=== PATIENT | female | born 1980 | race Caucasian/White ===

== ENCOUNTER 2019-03-05 08:14 | Emergency (ER) | payer MEDICAID, SELFPAY ==
--- NOTE | 2019-03-05 08:17 | ED_ITS ---
Entered by Nikki Baltazar, acting as scribe for HPI - Asthma General: Chief Complaint: Asthma Stated Complaint: Can not breath Time Seen by Provider: 03/05/19 08:17 Source: patient and family Mode of arrival: ambulatory Limitations: no limitations History of Present Illness: HPI Narrative: 38 yo female presents with shortness of breath and anxiety. pt states this started 2-3 months ago but worsened today. pt has had a cough. pt states she took a breathing treatment just captain waiter but she cant catch her breath. pt has a hx of asthma. pt denies any other symptoms at this time. MD complaint: asthma attack and shortness of breath Onset (ago): month(s) (3 months ago but worsened today) Severity: moderate Associated symptoms: Reports non-productive cough; Deny chest pain or fever(s) Related Data: Current Asthma Therapy: other (breathing treatment) Review of Systems Const: Denies: fever or chills Eyes: Denies: change in vision ENMT: Denies: throat pain or mouth pain Card: Denies: chest pain Resp: Reports: non-productive cough and wheezing; Denies: shortness of breath GI: Denies: abdominal pain, vomiting or diarrhea : Denies: difficulty urinating Musc: Denies: back pain or joint pain Skin/Breast: Denies: rash Neuro: Denies: headache Psych: Denies: depression Endo: Denies: excessive urination Fadi/Lymph: Denies: easy bruising All/Imm: Denies: hives PFSH ED PFSH: Statuses (acute, chronic, etc) shown below reflect problem list status as previously entered and may not be historically accurate Medical History Asthma (Acute) Social History Smoking and tobacco status: never smoked Physical Exam Const: COMMON NORMALS: no apparent distress and healthy appearing HENMT: COMMON NORMALS: normocephalic and external nose normal HEAD & SCALP: normocephalic NOSE: external nose normal and no nasal discharge (nasal dischage) Eye: COMMON NORMALS: PERRL PUPIL: Yes PERRL Neck/C-Spine: COMMON NORMALS: full ROM and no lymphadenopathy Chest: COMMONS NORMALS: inspection of chest normal Resp: COMMON NORMALS: normal respiratory effort EFFORT & INSPECTION: No respiratory distress and Yes audible wheezes Cardio: COMMON NORMALS: regular rate and regular rhythm RATE: regular rate RHYTHM: regular rhythm GI: COMMON NORMALS: soft to palpation PALPATION: Yes soft Extremity: COMMON NORMALS: normal to inspection, full ROM and normal capillary refill Psych: COMMON NORMALS: mental status grossly normal and cooperative Skin: COMMON NORMALS: no rashes or lesions noted GENERAL SKIN EXAM: no rashes or lesions noted Course Vital Signs: Vital signs: Vital Signs Temperature 99.2 F 03/05/19 08:19 Pulse Rate 110 H 03/05/19 09:37 Respiratory Rate 18 03/05/19 09:37 Blood Pressure 181/104 03/05/19 09:37 Pulse Oximetry 97 03/05/19 09:37 MDM - Asthma MDM Narrative: Medical decision making narrative: Patient presents with cough and congestion likely bronchitis. Will prescribe patient antibiotic along with steroid. She is in no distress here and d-dimer is negative with no signs of pulmonary embolism. Patient is to follow-up with primary care doctor in 3 to 5 days and return if worsening. Lab Data: Labs: Lab Results 03/05/19 03/05/19 03/05/19 Range/Units 08:29 08:29 08:29 WBC 12.3 H (4.0-10.0) 10^3/ uL RBC 4.87 (4.1-5.3) 10^6/u L Hgb 12.1 (11.5-15.3) g/dL Hct 38.2 (37.0-47.0) % MCV 78.4 L (81-99) fL MCH 24.8 L (28.0-34.0) pg MCHC 31.7 (30.0-36.0) g/dL RDW 15.0 (12.1-15.1) % Plt Count 270 (130-400) 10^3/c mm MPV 9.8 (7.4-10.4) fL Neut % (Auto) 68.2 % Lymph % (Auto) 20.1 % [place] % (Auto) 7.4 % Eos % (Auto) 3.5 % Baso % (Auto) 0.3 % Neut # (Auto) 8.4 H (1.8-7.7) 10^3/u L Lymph # (Auto) 2.5 (0.8-4.8) 10^3/u L [place]ne # (Auto) 0.9 (0.2-0.9) 10^3/u L Eos # (Auto) 0.4 (0.0-0.8) 10^3/u L Baso # (Auto) 0.0 (0.0-0.1) 10^3/u L Nucleated RBC % (a uto) 0 % Nucleated RBCs # 0.0 /100WBC D-Dimer (0-0.59) ug/mIFE U Sodium 135 L (136-145) mmol/L Potassium 4.0 (3.5-5.1) mmol/L Chloride 99 (98-107) mmol/L Carbon Dioxide 23 (22-29) mmol/L Anion Gap 17.0 (5-19) BUN 9 (6-20) mg/dL Creatinine 0.5 (0.5-0.9) mg/dL GFR Calculation 138.1 H (90-130) mL/min Glucose 224 H (74-109) mg/dL Calcium 9.4 (8.6-10.0) mg/Dl Total Bilirubin 0.4 (0.15-1.2) mg/dL AST 13 (0-32) U/L ALT 22 (0-33) U/L Alkaline Phosphata se 84 (35-105) IU/L Troponin T Baselin e 6 (0-10) ng/mL Total Protein 6.7 (6.6-8.7) g/dL Albumin 4.6 (3.5-5.2) g/dL Globulin 2.1 (1.3-4.6) g/dL 03/05/19 Range/Units 08:29 WBC (4.0-10.0) 10^3/ uL RBC (4.1-5.3) 10^6/u L Hgb (11.5-15.3) g/dL Hct (37.0-47.0) % MCV (81-99) fL MCH (28.0-34.0) pg MCHC (30.0-36.0) g/dL RDW (12.1-15.1) % Plt Count (130-400) 10^3/c mm MPV (7.4-10.4) fL Neut % (Auto) % Lymph % (Auto) % [place]ne % (Auto) % Eos % (Auto) % Baso % (Auto) % Neut # (Auto) (1.8-7.7) 10^3/u L Lymph # (Auto) (0.8-4.8) 10^3/u L [place]ne # (Auto) (0.2-0.9) 10^3/u L Eos # (Auto) (0.0-0.8) 10^3/u L Baso # (Auto) (0.0-0.1) 10^3/u L Nucleated RBC % (a uto) % Nucleated RBCs # /100WBC D-Dimer 0.45 (0-0.59) ug/mIFE U Sodium (136-145) mmol/L Potassium (3.5-5.1) mmol/L Chloride (98-107) mmol/L Carbon Dioxide (22-29) mmol/L Anion Gap (5-19) BUN (6-20) mg/dL Creatinine (0.5-0.9) mg/dL GFR Calculation (90-130) mL/min Glucose (74-109) mg/dL Calcium (8.6-10.0) mg/Dl Total Bilirubin (0.15-1.2) mg/dL AST (0-32) U/L ALT (0-33) U/L Alkaline Phosphata se (35-105) IU/L Troponin T Baselin e (0-10) ng/mL Total Protein (6.6-8.7) g/dL Albumin (3.5-5.2) g/dL Globulin (1.3-4.6) g/dL Imaging Data^: CXR: Attestation: I personally reviewed and interpreted this imaging study as follows: My impression: no acute abnormality Discharge Plan Discharge Patient Disposition: Home, Self-Care Clinical Impression: Acute asthmatic bronchitis Hypertension Qualifiers: Hypertension type: essential hypertension Qualified Code(s): I10 - Essential (primary) hypertension Condition: Stable Prescriptions: New Keflex 500 mg capsule 500 mg PO Q6H 7 Days Qty: 28 RF: 0 prednisone 50 mg tablet 50 mg PO DAILY Qty: 5 RF: 0 hydrochlorothiazide 25 mg tablet 25 mg PO DAILY Qty: 30 RF: 0 Discharge Orders: Discharge Order (Routine); Ordered 03/05/19 Ordered By: Naeem Salinas Discharge Diet: Advance as tolerated Discharge Activity: Resume usual activity Patient Instructions: Acute Bronchitis (ED) Activity Restrictions/Additional Instructions: follow up with pcp in 3-5 days Discharge Date/Time: 03/05/19 09:40 Coding Level of Care Code ED Metaphysics Teacher for Chg Fwd Exam Problem Focused The documentation recorded by the Giovanny thomson Bridget Annette, accurately reflects the service I personally performed and the decisions made by Brad altman Korby, MD Mar 05, 2019 08:14
[2019-03-05 08:19] VITALS: BP 212/104; PULSE 116; RESP 20; TEMP 37.3; O2SAT 99; BMI 56.5
--- NOTE | 2019-03-05 08:19 | XRR_ITS ---
PROCEDURE INFORMATION: Exam: XR Chest, 1 View Exam date and time: 03/05/2019 8:30 AM Age: 38 years old Clinical indication: Shortness of breath; Additional info: Cough TECHNIQUE: Imaging protocol: XR of the chest Views: 1 view. COMPARISON: No relevant prior studies available. FINDINGS: Lungs: Lung volumes are mildly hypoinflated. No focal consolidation. Pleural space: No pleural effusion. No pneumothorax. Heart/Mediastinum: No cardiomegaly. Bones/joints: Unremarkable for technique. XR/XR chest 1V portable [id number] IMPRESSION: 1. Mild hypoinflation. Otherwise, no acute cardiopulmonary process identified.
--- NOTE | 2019-03-05 08:21 | PC.NURSE ---
Patient to room.
[2019-03-05] MEDS: LORazepam 2 mg/mL INJ 1 mL 1 MG IVP (08:34)
[2019-03-05 08:37] LABS: Basophils % 0.3 %; Eosinophils # 0.4 10^3/uL (0.0-0.8); Eosinophils % 3.5 %; Hematocrit 38.2 % (37.0-47.0); Hemoglobin 12.1 g/dL (11.5-15.3); Lymphocytes # 2.5 10^3/uL (0.8-4.8); Lymphocytes % 20.1 %; Mean Corpuscular HGB Conc 31.7 g/dL (30.0-36.0); Mean Corpuscular Hemoglobin 24.8 pg (28.0-34.0); Mean Corpuscular Volume 78.4 fL (81-99); Mean Platelet Volume 9.8 fL (7.4-10.4); Monocytes # 0.9 10^3/uL (0.2-0.9); Monocytes % 7.4 %; Neutrophils # 8.4 10^3/uL (1.8-7.7); Neutrophils % 68.2 %; Nucleated Red Blood Cells % 0 %; Platelet Count 270 10^3/cmm (130-400); Red Blood Count 4.87 10^6/uL (4.1-5.3); White Blood Count 12.3 10^3/uL (4.0-10.0)
--- NOTE | 2019-03-05 08:47 | PC.NURSE ---
Skin: [place],Warm,Dry
[2019-03-05 08:53] LABS: D Dimer 0.45 ug/mIFEU (0-0.59)
[2019-03-05] MEDS: ipratropium-albuterol 3 mL Neb INHALATION (08:53)
[2019-03-05 08:54] VITALS: PULSE 118; RESP 20; O2SAT 95
[2019-03-05] MEDS: acetaminophen 325 mg Tablet 650 MG PO (09:00)
[2019-03-05 09:01] VITALS: PULSE 121; RESP 20; O2SAT 96
[2019-03-05 09:01] LABS: Alanine Aminotransferase 22 U/L (0-33); Albumin Level 4.6 g/dL (3.5-5.2); Alkaline Phosphatase 84 IU/L (35-105); Aspartate Amino Transferase 13 U/L (0-32); Blood Urea Nitrogen 9 mg/dL (6-20); Calcium 9.4 mg/Dl (8.6-10.0); Carbon Dioxide 23 mmol/L (22-29); Chloride 99 mmol/L (98-107); Globulin 2.1 g/dL (1.3-4.6); Glomerular Filtration Rate 138.1 mL/min (90-130); Glucose 224 mg/dL (74-109); Sodium 135 mmol/L (136-145); Total Bilirubin 0.4 mg/dL (0.15-1.2); Total Protein 6.7 g/dL (6.6-8.7)
[2019-03-05 09:03] LABS: Troponin(5th) Baseline 6 ng/mL (0-10)
[2019-03-05 09:37] VITALS: BP 181/104; PULSE 110; RESP 18; O2SAT 97
== END 2019-03-05 09:40 | disposition home or self-care (01) ==
PROVIDERS: Emergency Provider Emergency Medicine
DX: J45.909 Unspecified asthma, uncomplicated (principal); I10 Essential (primary) hypertension
CPT/HCPCS: 71045; 80053; 84484; 85025; 85378; 96374; 99281; J2060; J2930

== ENCOUNTER 2019-03-12 16:55 | Observation (INO) | payer MEDICAID, SELFPAY ==
[2019-03-12] VITALS (10 sets, daily range): BP systolic 117–186; BP diastolic 54–138; PULSE 106–136; RESP 18–30; TEMP 36.6–36.9; O2SAT 95–99; BMI 56.5
--- NOTE | 2019-03-12 16:58 | ED_ITS ---
Entered by Li Diego, acting as scribe for HPI - Asthma General: Chief Complaint: Asthma Stated Complaint: Asthma Attack Time Seen by Provider: 03/12/19 16:57 Source: patient Mode of arrival: ambulatory Limitations: no limitations History of Present Illness: HPI Narrative: 38 yo Female presents to ED with complaint of asthma attack. Pt states that she has been throwing up all day. Pt states that she was seen last week for the same thing. Pt states that she has been using her inhaler for her asthma. Pt's family member states that the patient has also been complaining of pain in her side. Pt states she has had tarry stools. complaint: asthma attack , shortness of breath and wheezing Onset (ago): hour(s) (all day) Severity: severe Associated symptoms: Reports non-productive cough and other (left flank pain) Treatments Prior to Arrival: inhaled bronchodilator Review of Systems General: Reports: 10 or more systems reviewed and unremarkable except in HPI and below Resp: Reports: shortness of breath, non-productive cough and wheezing GI: Reports: abdominal pain, nausea, vomiting and black tarry stool : Reports: flank pain (left) PFSH ED PFSH: Statuses (acute, chronic, etc) shown below reflect problem list status as previously entered and may not be historically accurate Social History Smoking and tobacco status: never smoked Female Reproductive History: Date of last menstrual period: 03/12/19 Physical Exam Const: COMMON NORMALS: oriented x3, no limitations, healthy appearing, alert and well nourished GENERAL APPEARANCE: in distress and anxious NUTRITIONAL APPEARANCE: obese HENMT: COMMON NORMALS: normocephalic, head/scalp atraumatic, hearing grossly normal bilaterally, external ears normal, EAC's normal, TM's normal bilaterally, external nose normal, nasal mucous membranes and turbinates normal, moist oral mucous membranes, oropharynx normal, dentition normal and gingiva normal HEAD & SCALP: normocephalic and atraumatic NOSE: external nose normal and nasal mucous membranes and turbinates normal EXTERNAL EAR: Yes external ears normal EXTERNAL AUDITORY CANAL: EAC's normal TYMPANIC MEMBRANE: TM's normal bilaterally Eye: COMMON NORMALS: PERRL, EOMs intact bilaterally, conjunctivae normal, no scleral icterus, no papilledema, normal visual mendoza by confrontation and fundi normal bilaterally CONJUNCTIVA: Yes conjunctivae normal PUPIL: Yes PERRL DIRECT OPHTHALMOSCOPY: Yes no papilledema and Yes fundi normal bilaterally Neck/C-Spine: COMMON NORMALS: full ROM, supple, no meningeal signs, no JVD and no carotid bruits Chest: COMMONS NORMALS: inspection of chest normal and palpation of chest normal Resp: COMMON NORMALS: no retractions EFFORT & INSPECTION: No able to speak in complete sentences, Yes tachypneic, Yes respiratory distress, Yes uses accessory muscles and Yes tripod positioning AUSCULTATION: wheezes expiratory wheezes and throughout and diminished lung sounds Cardio: COMMON NORMALS: no JVD, regular rhythm, S1 normal heart sound, S2 normal heart sound, no gallops, no clicks, no murmurs, no rub and peripheral pulses 2+ throughout RATE: tachycardic RHYTHM: regular rhythm HEART SOUNDS: S1 normal and S2 normal PERIPHERAL PULSES: pulses 2+ throughout GI: COMMON NORMALS: normal to inspection, nondistended, normoactive bowel sounds, soft to palpation, non-tender, no hepatosplenomegaly, no masses and no bruits PALPATION: Yes soft and Yes no hepatosplenomegaly : COMMON NORMALS: Yes no CVA tenderness BLADDER/KIDNEY EXAM: Yes no CVA tenderness Back/Pelvis: COMMON NORMALS: no CVA tenderness Extremity: COMMON NORMALS: normal to inspection, full ROM, normal capillary refill, no joint enlargement, no clubbing, cyanosis or edema, no calf tenderness and no pedal edema Neuro: COMMON NORMALS: oriented x3 SENSORIUM/ORIENTATION: Yes alert MENINGEAL SIGNS: Yes no meningeal signs Skin: COMMON NORMALS: no rashes or lesions noted, no wounds, skin turgor normal, no jaundice, no petechiae and no mottling GENERAL SKIN EXAM: no rashes or lesions noted and turgor normal Course Reevaluation(s): Reevaluation #1: Patient seen. She feels better now, she is not coughing as frequently, not throwing up anymore. She is able to speak in full sentences now. She is no longer in respiratory distress. On examination she has much improved air movement, only a few expiratory wheezes heard. We will give her another breathing treatments and wait on the rest of her labs and imaging before a final disposition will be made. She voiced understanding and is in agreement with the plan. Time: 18:19 Consultations: Consultation #1: Dr. Haynes, hospitalist. She kindly accepted the patient to her service. Time: 20:00 Vital Signs: Vital signs: Vital Signs Temperature 98.2 F 03/12/19 19:56 Pulse Rate 111 H 03/12/19 19:56 Respiratory Rate 24 H 03/12/19 19:56 Blood Pressure 183/103 03/12/19 19:56 Pulse Oximetry 97 03/12/19 19:56 MDM - Asthma MDM Narrative: Medical decision making narrative: 38-year-old female patient who presented to the emergency department in respiratory distress. She has a history of poorly controlled asthma and has been in this emergency department 5 days ago for the same thing. She was given a steroid burst and albuterol breathing treatments at home which apparently are not working. Evaluation in the emergency department showed a chest x-ray clear for pneumonia, labs unremarkable. She is admitted under observation status for pulmonary toilet and further management. Differential Diagnosis: Differential diagnosis asthma: Likely acute exacerbation, status asthmaticus and acute asthmatic bronchitis Medical Records: Attestation: I reviewed the patient's medical records. Lab Data: Attestation: I reviewed the patient's lab results. Labs: Lab Results 03/12/19 03/12/19 03/12/19 Range/Units 17:02 17:03 17:03 WBC 13.9 H (4.0-10.0) 10^3/ uL RBC 5.23 (4.1-5.3) 10^6/u L Hgb 12.8 (11.5-15.3) g/dL Hct 40.7 (37.0-47.0) % MCV 77.8 L (81-99) fL MCH 24.5 L (28.0-34.0) pg MCHC 31.4 (30.0-36.0) g/dL RDW 14.7 (12.1-15.1) % Plt Count 288 (130-400) 10^3/c mm MPV 9.9 (7.4-10.4) fL Neut % (Auto) 68.3 % Lymph % (Auto) 20.4 % [place] % (Auto) 5.6 % Eos % (Auto) 5.1 % Baso % (Auto) 0.2 % Neut # (Auto) 9.5 H (1.8-7.7) 10^3/u L Lymph # (Auto) 2.8 (0.8-4.8) 10^3/u L [place] # (Auto) 0.8 (0.2-0.9) 10^3/u L Eos # (Auto) 0.7 (0.0-0.8) 10^3/u L Baso # (Auto) 0.0 (0.0-0.1) 10^3/u L Nucleated RBC % (a uto) 0 % Nucleated RBCs # 0.0 /100WBC Specimen Type Arterial Sample Site Radial, left ABG pH 7.46 H (7.35-7.45) ABG pCO2 31.6 L (35-45) mmHg ABG pO2 86.6 (80.0-100.0) mmH g ABG HCO3 22.6 (22-26) mmol/L ABG O2 Saturation 97.8 ABG Base Excess -0.4 (-2.0-2.0) mmol/ L Simeon Test Pos A-a O2 Gradient 22.9 H (5-10) mmHg Hematocrit 41.3 (37-47) % Hgb O2 Saturation 96.8 (95-100) % Carboxyhemoglobin 0.7 (0.4-20.1) %THgb Methemoglobin 0.4 (0.4-1.5) % Total Hemoglobin 13.5 (12-16) g/dL Sodium 137.0 133 L (131-143) mmol/L Potassium 3.7 3.8 (3.5-5.0) mmol/L Glucose 177.0 H 205 H (70-115) mg/dL Ionized Calcium 1.2 (1.1-1.4) mmol/L FiO2 21.0 % Accountant Property ID [id number] Chloride 97 L (98-107) mmol/L Carbon Dioxide 23 (22-29) mmol/L Anion Gap 16.8 (5-19) BUN 9 (6-20) mg/dL Creatinine 0.5 (0.5-0.9) mg/dL GFR Calculation 138.1 H (90-130) mL/min Calcium 9.6 (8.6-10.0) mg/Dl Total Bilirubin 0.3 (0.15-1.2) mg/dL AST 26 (0-32) U/L ALT 41 H (0-33) U/L Alkaline Phosphata se 90 (35-105) IU/L C-React Prot High Sens 4.240 H (0.0-0.3) mg/dL Total Protein 6.8 (6.6-8.7) g/dL Albumin 4.1 (3.5-5.2) g/dL Globulin 2.7 (1.3-4.6) g/dL Lipase 29 (13-60) U/L Imaging Data^: CXR: Radiologist's impression: [place] [address] XRay Report Signed Patient: Samantha Qiu #: [id number] : 1980Acct#:[id number] Age/Sex: 38 / FADM Date: 03/12/19 Loc: ERRoom/Bed: Attending Dr: Ordering Provider/Ordering MD: Elba Sy MD, [facility] [place] Date of Service: 03/12/19 Procedure(s): XR chest 1V portable [id number] Accession Number(s): [id number] Report Number: [id number] PROCEDURE INFORMATION: Exam: XR Chest, 1 View Exam date and time: 03/12/2019 6:34 PM Age: 38 years old Clinical indication: Shortness of breath; Additional info: Asthma TECHNIQUE: Imaging protocol: XR of the chest Views: 1 view. COMPARISON: CR (CHEST, ) 03/05/2019 8:29 AM FINDINGS: Lungs: Unremarkable. No consolidation. Pleural space: Unremarkable. No pleural effusion. No pneumothorax. Heart/Mediastinum: Unremarkable. No cardiomegaly. Bones/joints: Unremarkable. XR/XR chest 1V portable [id number] IMPRESSION: No acute findings. Dictated By:Julia Dyer MD Signed By:Julia Dyer MDSigned Date/Time:03/12/191915 DD/ 13 CT Abd/Pel: Radiologist's impression: [place] [address] CT Scan Report Signed Patient: Samantha Qiualysia #: [id number] : 1980Acct#:[id number] Age/Sex: 38 / FADM Date: 03/12/19 Loc: ERRoom/Bed: Attending Dr: Ordering Provider/Ordering MD: Elba Sy MD, [facility] [place] Date of Service: 03/12/19 Procedure(s): CT abdomen pelvis w con* [id number] Accession Number(s): [id number] Report Number: [id number] PROCEDURE INFORMATION: Exam: CT Abdomen And Pelvis With Contrast Exam date and time: 03/12/2019 6:36 PM Age: 38 years old Clinical indication: Abdominal pain; Localized; Left upper quadrant (luq); Additional info: Luq pain TECHNIQUE: Imaging protocol: Computed tomography of the abdomen and pelvis with intravenous contrast. Total DLP: 2182.43 mGy-cm Radiation optimization: All CT scans at this facility use at least one of these dose optimization techniques: automated exposure control; mA and/or kV adjustment per patient size (includes targeted exams where dose is matched to clinical indication); or iterative reconstruction. Contrast material: OMNIPAQUE 300; Contrast volume: 95 ml; Contrast route: IV; COMPARISON: US pelvic with transvaginal 03/24/2013 5:31 PM FINDINGS: Mediastinum: There is fluid in the distal esophagus consistent with reflux. Liver: Hepatomegaly with fatty infiltration of the liver. Gallbladder and bile ducts: Normal. No calcified stones. No ductal dilation. Pancreas: Normal. No ductal dilation. Spleen: Spleen is mildly enlarged measuring 13.6 cm. Adrenals: Normal. No mass. Kidneys and ureters: 10 mm well-circumscribed cystic lesion in the left kidney has benign features. Follow-up is not necessary. Stomach and bowel: Unremarkable. No obstruction. No mucosal thickening. Appendix: A normal appendix is identified. Intraperitoneal space: Unremarkable. No free air. No significant fluid collection. Vasculature: Unremarkable. No abdominal aortic aneurysm. Lymph nodes: Unremarkable. No enlarged lymph nodes. Bladder: Unremarkable as visualized. Reproductive: Essure microinserts are present in the uterine cornua extending into the proximal fallopian tubes. Bones/joints: Unremarkable. No acute fracture. Soft tissues: There is edema in the subcutaneous soft tissues of the ventral abdomen. CT/CT abdomen pelvis w con* [id number] IMPRESSION: 1. Hepatomegaly with fatty infiltration of the liver. 2. Mild splenomegaly. 3. There is fluid in the distal esophagus consistent with reflux. COMMENT: Consistent with the [employer]'s Incidental Findings Committee Report (J Am Candido Radiol 2010): Unless the patient's specific circumstances suggest otherwise, any liver lesion 0.5 cm or less, any cystic kidney lesion less than 1.0 cm, and/or any adrenal lesion 1.0 cm or less not otherwise characterized in this report as possessing suspicious or indeterminate imaging features is/are highly likely to be benign and do not require follow-up imaging or biopsy. Radiation Dose CTDIVOL = (mGy): DLP = 2182.43 (mGy-cm) Dictated By:Julia Dyer MD Signed By:Julia Dyerigned Date/Time:03/12/191922 DD/ 20 Discharge Plan Discharge Patient Disposition: Placed in Observation Clinical Impression: Asthma with acute exacerbation Condition: Stable Prescriptions: No Action prednisone 50 mg tablet 50 mg PO DAILY Qty: 5 RF: 0 hydrochlorothiazide 25 mg tablet 25 mg PO DAILY Qty: 30 RF: 0 albuterol sulfate 2.5 mg /3 mL (0.083 %) Solution For Nebulization 2.5 mg inhalation Q4H PRN (Reason: Shortness Of Breath) RF: 0 famotidine 20 mg Tablet 20 mg PO BID RF: 0 benzonatate 100 mg Capsule 100 mg PO Q8H RF: 0 Keflex 500 mg Capsule 500 mg PO Q6H RF: 0 Probiotic 2 cap PO DAILY RF: 0 biotin 1 cap PO DAILY RF: 0 Coding Level of Care Code ED Risk Manager for Chg Fwd Exam Problem Focused The documentation recorded by the Brandie thomson Carmen, accurately reflects the service I personally performed and the decisions made by , Elba Sy MD, [facility] Mar 12, 2019 16:55
[2019-03-12 17:10] LABS: Basophils % 0.2 %; Eosinophils # 0.7 10^3/uL (0.0-0.8); Eosinophils % 5.1 %; Hematocrit 40.7 % (37.0-47.0); Hemoglobin 12.8 g/dL (11.5-15.3); Lymphocytes # 2.8 10^3/uL (0.8-4.8); Lymphocytes % 20.4 %; Mean Corpuscular HGB Conc 31.4 g/dL (30.0-36.0); Mean Corpuscular Hemoglobin 24.5 pg (28.0-34.0); Mean Corpuscular Volume 77.8 fL (81-99); Mean Platelet Volume 9.9 fL (7.4-10.4); Monocytes # 0.8 10^3/uL (0.2-0.9); Monocytes % 5.6 %; Neutrophils # 9.5 10^3/uL (1.8-7.7); Neutrophils % 68.3 %; Nucleated Red Blood Cells % 0 %; Platelet Count 288 10^3/cmm (130-400); Red Blood Count 5.23 10^6/uL (4.1-5.3); Red Cell Distribution Width 14.7 % (12.1-15.1); White Blood Count 13.9 10^3/uL (4.0-10.0)
[2019-03-12 17:13] LABS: ABG PCO2 31.6 mmHg (35-45); ABG PH Result 7.46 (7.35-7.45); Alveolar-Arterial Oxygen Gradi 22.9 mmHg (5-10); Arterial Blood Gas Hematocrit 41.3 % (37-47); Base Excess ABG -0.4 mmol/L (-2.0-2.0); Blood Gas Allen Test Pos; Blood Gas Operator Identificat amh; Blood Gas Sample Site Radial, left; Blood Gas Sample Type Arterial; Carboxyhemoglobin 0.7 %THgb (0.4-20.1); HCO3 ABG 22.6 mmol/L (22-26); HGB O2 Sat 96.8 % (95-100); Ionized Calcium Level - ABG 1.2 mmol/L (1.1-1.4); Methemoglobin 0.4 % (0.4-1.5); Oxygen Saturation ABG 97.8; PO2 ABG 86.6 mmHg (80.0-100.0); Potassium Level - ABG 3.7 mmol/L (3.5-5.0); Total Hemoglobin 13.5 g/dL (12-16)
[2019-03-12] MEDS: ipratropium-albuterol 3 mL Neb INHALATION (17:15)
[2019-03-12 17:33] LABS: Alanine Aminotransferase 41 U/L (0-33); Albumin Level 4.1 g/dL (3.5-5.2); Alkaline Phosphatase 90 IU/L (35-105); Anion Gap 16.8 (5-19); Aspartate Amino Transferase 26 U/L (0-32); Blood Urea Nitrogen 9 mg/dL (6-20); Calcium 9.6 mg/Dl (8.6-10.0); Carbon Dioxide 23 mmol/L (22-29); Chloride 97 mmol/L (98-107); Globulin 2.7 g/dL (1.3-4.6); Glomerular Filtration Rate 138.1 mL/min (90-130); Glucose 205 mg/dL (74-109); Lipase 29 U/L (13-60); Potassium 3.8 mmol/L (3.5-5.1); Sodium 133 mmol/L (136-145); Total Bilirubin 0.3 mg/dL (0.15-1.2); Total Protein 6.8 g/dL (6.6-8.7)
--- NOTE | 2019-03-12 18:12 | XRR_ITS ---
PROCEDURE INFORMATION: Exam: XR Chest, 1 View Exam date and time: 03/12/2019 6:34 PM Age: 38 years old Clinical indication: Shortness of breath; Additional info: Asthma TECHNIQUE: Imaging protocol: XR of the chest Views: 1 view. COMPARISON: CR (CHEST, ) 03/05/2019 8:29 AM FINDINGS: Lungs: Unremarkable. No consolidation. Pleural space: Unremarkable. No pleural effusion. No pneumothorax. Heart/Mediastinum: Unremarkable. No cardiomegaly. Bones/joints: Unremarkable. XR/XR chest 1V portable [id number] IMPRESSION: No acute findings.
--- NOTE | 2019-03-12 18:18 | CTR_ITS ---
PROCEDURE INFORMATION: Exam: CT Abdomen And Pelvis With Contrast Exam date and time: 03/12/2019 6:36 PM Age: 38 years old Clinical indication: Abdominal pain; Localized; Left upper quadrant (luq); Additional info: Luq pain TECHNIQUE: Imaging protocol: Computed tomography of the abdomen and pelvis with intravenous contrast. Total DLP: 2182.43 mGy-cm Radiation optimization: All CT scans at this facility use at least one of these dose optimization techniques: automated exposure control; mA and/or kV adjustment per patient size (includes targeted exams where dose is matched to clinical indication); or iterative reconstruction. Contrast material: OMNIPAQUE 300; Contrast volume: 95 ml; Contrast route: IV; COMPARISON: US pelvic with transvaginal 03/24/2013 5:31 PM FINDINGS: Mediastinum: There is fluid in the distal esophagus consistent with reflux. Liver: Hepatomegaly with fatty infiltration of the liver. Gallbladder and bile ducts: Normal. No calcified stones. No ductal dilation. Pancreas: Normal. No ductal dilation. Spleen: Spleen is mildly enlarged measuring 13.6 cm. Adrenals: Normal. No mass. Kidneys and ureters: 10 mm well-circumscribed cystic lesion in the left kidney has benign features. Follow-up is not necessary. Stomach and bowel: Unremarkable. No obstruction. No mucosal thickening. Appendix: A normal appendix is identified. Intraperitoneal space: Unremarkable. No free air. No significant fluid collection. Vasculature: Unremarkable. No abdominal aortic aneurysm. Lymph nodes: Unremarkable. No enlarged lymph nodes. Bladder: Unremarkable as visualized. Reproductive: Essure microinserts are present in the uterine cornua extending into the proximal fallopian tubes. Bones/joints: Unremarkable. No acute fracture. Soft tissues: There is edema in the subcutaneous soft tissues of the ventral abdomen. CT/CT abdomen pelvis w con* [id number] IMPRESSION: 1. Hepatomegaly with fatty infiltration of the liver. 2. Mild splenomegaly. 3. There is fluid in the distal esophagus consistent with reflux. COMMENT: Consistent with the [employer]'s Incidental Findings Committee Report (J Am Candido Radiol 2010): Unless the patient's specific circumstances suggest otherwise, any liver lesion 0.5 cm or less, any cystic kidney lesion less than 1.0 cm, and/or any adrenal lesion 1.0 cm or less not otherwise characterized in this report as possessing suspicious or indeterminate imaging features is/are highly likely to be benign and do not require follow-up imaging or biopsy. Radiation Dose CTDIVOL = (mGy): DLP = 2182.43 (mGy-cm)
[2019-03-12] MEDS: iohexol 300 mg/mL 100 mL Btl IV (18:38)
--- NOTE | 2019-03-12 20:20 | PC.NURSE ---
Report called to Tonya RN on [facility], all questions answered.
--- NOTE | 2019-03-12 20:24 | PM.HP ---
Providers/Chief Complaint Admitting Physician: Victorino Haynes DO Primary Care Provider: Victorino Haynes DO Chief Complaint: ASTHMA EXACERBATION History of Present Illness Samantha Qiu is a 38 year old female with history of intermittent asthma, IBS presents with shortness of breath. Patient states that for the past 1 month her symptoms have gotten intermittently worse and her albuterol use is at its increased. Patient came to the ER 5 days ago where she was discharged with oral prednisone taper for asthma exacerbation. Patient now presents back with worsening shortness of breath and severe wheezing. Also admits to nausea vomiting. Denies any fever, chills, abdominal pain or other complaints Review of Systems General: Reports: 10 or more systems reviewed and unremarkable except in HPI and below Resp: Reports: shortness of breath and wheezing GI: Reports: nausea Medications/Allergies Home Medications Medication Instructions Recorded Confirmed Last Taken Type Probiotic 2 cap PO DAILY 03/12/19 03/12/19 03/12/19 History albuterol sulfate 2.5 mg INHALATION Q4H PRN 03/12/19 03/12/19 03/12/19 History benzonatate 100 mg PO Q8H 03/12/19 03/12/19 03/11/19 History biotin 1 cap PO DAILY 03/12/19 03/12/19 03/12/19 History cephalexin [Keflex] 500 mg PO Q6H 03/12/19 03/12/19 03/12/19 History famotidine 20 mg PO BID 03/12/19 03/12/19 03/12/19 History Allergies Allergy/AdvReac Type Severity Reaction Status Date / Time No Known Allergies Allergy Verified 03/05/19 09:08 PFSH Acute PFSH: Statuses (acute, chronic, etc) shown below reflect problem list status as previously entered and may not be historically accurate Medical History Acute asthmatic bronchitis (Acute) Asthma (Acute) Hypertension (Acute) Social History Smoking and tobacco status: never smoked Female Reporductive History: Date of last menstrual period: 03/12/19 Vitals/I&O/Wt Last Vital Signs Temp 98.2 F 03/12/19 19:56 Pulse 111 H 03/12/19 19:56 Resp 24 H 03/12/19 19:56 BP 183/103 03/12/19 19:56 Pulse Ox 97 03/12/19 19:56 Weight last 48 hrs Weight 154.221 kg Physical Exam Const: COMMON NORMALS: no apparent distress, oriented x3 and well nourished HENMT: COMMON NORMALS: normocephalic HEAD & SCALP: normocephalic Eye: COMMON NORMALS: no scleral icterus Neck/C-Spine: COMMON NORMALS: full ROM and supple Resp: AUSCULTATION: wheezes expiratory wheezes, inspiratory wheezes and throughout Cardio: COMMON NORMALS: regular rate, regular rhythm, S1 normal heart sound and S2 normal heart sound RATE: regular rate RHYTHM: regular rhythm HEART SOUNDS: S1 normal and S2 normal GI: COMMON NORMALS: normal to inspection, nondistended, normoactive bowel sounds and non-tender Extremity: COMMON NORMALS: full ROM and no clubbing, cyanosis or edema Neuro: COMMON NORMALS: oriented x3 Psych: COMMON NORMALS: mental status grossly normal Skin: COMMON NORMALS: no rashes or lesions noted GENERAL SKIN EXAM: no rashes or lesions noted Data : 03/12/19 17:03 03/12/19 17:03 A&P Assessment and plan (1) Asthma with acute exacerbation: #Shortness of breath 2/2 acute on chronic asthma exacerbation X-ray clear. Denies any fever or chills and vitals stable ?IV Solu-Medrol ?Nebs ?Influenza swab ?Nausea likely due to gastritis. CT abdomen done in the ER negative for acute process #Hypertension ?Continue with home meds #Continue with rest of chronic home medications #DVT prophylaxis?enoxaparin subcu Status: Acute Qualifiers: Asthma persistence: persistent Asthma severity: severe Qualified Code(s): J45.51 - Severe persistent asthma with (acute) exacerbation Code(s): J45.901 - Unspecified asthma with (acute) exacerbation (2) Hypertension: Status: Chronic Qualifiers: Hypertension type: essential hypertension Qualified Code(s): I10 - Essential (primary) hypertension Code(s): I10 - Essential (primary) hypertension Attestations Medical Necessity Statement*: Patient requires less than 2 midnights of observation admission for asthma exacerbation Coding Level of Care Code 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
[2019-03-12] MEDS: sodium chloride 0.9% 1,000 ML 100 ML IV (21:21)
[2019-03-12] MEDS: benzonatate 100 mg Capsule PO (21:54)
[2019-03-12 22:33] LABS: Influenza A by IFA Negative (Negative); Influenza B by IFA Negative (Negative)
[2019-03-12] MEDS: acetaminophen 325 mg Tablet 650 MG PO (23:14)
[2019-03-13] VITALS (15 sets, daily range): BP systolic 137–164; BP diastolic 82–97; PULSE 103–113; RESP 17–22; TEMP 36.4–36.6; O2SAT 94–98
[2019-03-13] MEDS: ipratropium-albuterol 3 mL Neb INHALATION ×4 (00:02→11:00)
[2019-03-13] MEDS: hydroCHLOROthiazide 25 mg Tablet PO ×2 (03:55→08:56)
--- NOTE | 2019-03-13 04:01 | PC.NURSE ---
pt rings finally removed. reports feeling very swollen, refused to have fluids hooked back up at this time. States 'making the swelling worse
[2019-03-13] MEDS: benzonatate 100 mg Capsule PO (05:08)
[2019-03-13 06:23] LABS: Basophils % 0.1 %; Eosinophils % 0.1 %; Hematocrit 39.2 % (37.0-47.0); Hemoglobin 12.4 g/dL (11.5-15.3); Lymphocytes # 0.7 10^3/uL (0.8-4.8); Lymphocytes % 4.7 %; Mean Corpuscular HGB Conc 31.6 g/dL (30.0-36.0); Mean Corpuscular Hemoglobin 24.7 pg (28.0-34.0); Mean Corpuscular Volume 78.1 fL (81-99); Mean Platelet Volume 10.5 fL (7.4-10.4); Monocytes # 0.1 10^3/uL (0.2-0.9); Monocytes % 0.8 %; Neutrophils # 13.4 10^3/uL (1.8-7.7); Neutrophils % 93.7 %; Nucleated Red Blood Cells % 0 %; Platelet Count 244 10^3/cmm (130-400); Red Blood Count 5.02 10^6/uL (4.1-5.3); Red Cell Distribution Width 15.3 % (12.1-15.1); White Blood Count 14.4 10^3/uL (4.0-10.0)
[2019-03-13 06:40] LABS: Anion Gap 20.1 (5-19); Blood Urea Nitrogen 11 mg/dL (6-20); Calcium 9.3 mg/Dl (8.6-10.0); Carbon Dioxide 19 mmol/L (22-29); Chloride 100 mmol/L (98-107); Glomerular Filtration Rate 138.1 mL/min (90-130); Glucose 393 mg/dL (74-109); Potassium 4.1 mmol/L (3.5-5.1); Sodium 135 mmol/L (136-145)
[2019-03-13] MEDS: famotidine 20 mg Tablet PO (08:56)
[2019-03-13] MEDS: acetaminophen 325 mg Tablet 650 MG PO (11:07)
--- NOTE | 2019-03-13 12:30 | P.DS_ITS ---
Discharge Providers Date of Admission: 03/12/19 20:16 Date of Discharge: 03/13/19 Attending Provider at Admission: Victorino Haynes DO Attending Provider at Discharge: Bruce Borden Primary Care Provider: Ayanna Cruz MD Diagnoses at Discharge Discharge Diagnosis (1) Asthma with acute exacerbation: Status: Acute Qualifiers: Asthma persistence: persistent Asthma severity: severe Qualified Code(s): J45.51 - Severe persistent asthma with (acute) exacerbation (2) Hypertension: Status: Inactive Qualifiers: Hypertension type: essential hypertension Qualified Code(s): I10 - Essential (primary) hypertension Reason for Visit Reason for Visit: Reason For Visit: ASTHMA EXACERBATION Hospital Course Hospital Course: 38-year-old lady with history of asthma, hypertensionwas placed in observation after presenting with shortness of breath with some worsening over the past 1 month, needing to use her albuterol inhaler more often. She reports that she also has a nebulizer at home, also with albuterol. She was noted wheezing on presentation. Underwent treatment with IV steroid, breathing treatments. She has not required oxygen. She is free of wheezes today. She is feeling better. Feels strong enough to return home. Given multiple return visits to the emergency department we will set her up with appointment with pulmonology to which she is agreeable. At this time given she only has albuterol at home we will start her on Advair. She reports her last pulmonary function test was about 16 years ago. Due to this we will refer her for repeat PFT after improvement in symptoms. Of note her blood pressure was very high on presentation. In part perhaps due to her symptoms. She was continued on home HCTZ. Her blood pressure has improved significantly overnight. She should continue monitoring at home. Continue low-sodium diet, and her medication. Please reassess in office. Physical Exam Const: COMMON NORMALS: no apparent distress and oriented x3 NUTRITIONAL APPEARANCE: obese HENMT: COMMON NORMALS: oropharynx normal Neck/C-Spine: COMMON NORMALS: no JVD Resp: COMMON NORMALS: normal respiratory effort and clear to auscultation bilaterally AUSCULTATION: clear to auscultation bilaterally Cardio: COMMON NORMALS: no JVD, regular rhythm, S1 normal heart sound, S2 normal heart sound and no murmurs RHYTHM: regular rhythm HEART SOUNDS: S1 normal and S2 normal GI: COMMON NORMALS: normal to inspection, nondistended, normoactive bowel sounds, soft to palpation and non-tender PALPATION: Yes soft Extremity: COMMON NORMALS: no joint enlargement and no pedal edema Neuro: COMMON NORMALS: oriented x3 and moves all extremities Skin: COMMON NORMALS: no rashes or lesions noted GENERAL SKIN EXAM: no rashes or lesions noted Discharge Data Data Completed and Pending: Completed Studies During Hospitalization Category Date Time Status CT abdomen pelvis w con* [id number] Urge nt Cat Scan 03/12/19 18:18 Completed XR chest 1V jennifer ble [id number] Stat Exams 03/12/19 18:12 Completed Pending at discharge Category Date Time Status Arterial Blood Ga s Full Routine Lab 03/12/19 17:02 Results Labs from last 24 hours 03/13/19 03/13/19 03/12/19 05:35 05:35 21:40 WBC 14.4 H RBC 5.02 Hgb 12.4 Hct 39.2 MCV 78.1 L MCH 24.7 L MCHC 31.6 RDW 15.3 H Plt Count 244 MPV 10.5 H Neut % (Auto) 93.7 Lymph % (Auto) 4.7 [place] % (Auto) 0.8 Eos % (Auto) 0.1 Baso % (Auto) 0.1 Neut # (Auto) 13.4 H Lymph # (Auto) 0.7 L [place] # (Auto) 0.1 L Eos # (Auto) 0.0 Baso # (Auto) 0.0 Nucleated RBC % (a uto) 0 Nucleated RBCs # 0.0 Specimen Type Sample Site ABG pH ABG pCO2 ABG pO2 ABG HCO3 ABG O2 Saturation ABG Base Excess Simeon Test A-a O2 Gradient Hematocrit Hgb O2 Saturation Carboxyhemoglobin Methemoglobin Total Hemoglobin Sodium 135 L Potassium 4.1 Glucose 393 H Ionized Calcium FiO2 Director Of Automation ID Chloride 100 Carbon Dioxide 19 L Anion Gap 20.1 H BUN 11 Creatinine 0.5 GFR Calculation 138.1 H Calcium 9.3 Total Bilirubin AST ALT Alkaline Phosphata se C-React Prot High Sens Total Protein Albumin Globulin Lipase Influenza Type A A g Negative POC Influenza B Ag Negative 03/12/19 03/12/19 03/12/19 17:03 17:03 17:02 WBC 13.9 H RBC 5.23 Hgb 12.8 Hct 40.7 MCV 77.8 L MCH 24.5 L MCHC 31.4 RDW 14.7 Plt Count 288 MPV 9.9 Neut % (Auto) 68.3 Lymph % (Auto) 20.4 [place] % (Auto) 5.6 Eos % (Auto) 5.1 Baso % (Auto) 0.2 Neut # (Auto) 9.5 H Lymph # (Auto) 2.8 [place] # (Auto) 0.8 Eos # (Auto) 0.7 Baso # (Auto) 0.0 Nucleated RBC % (a uto) 0 Nucleated RBCs # 0.0 Specimen Type Arterial Sample Site Radial, left ABG pH 7.46 H ABG pCO2 31.6 L ABG pO2 86.6 ABG HCO3 22.6 ABG O2 Saturation 97.8 ABG Base Excess -0.4 Simeon Test Pos A-a O2 Gradient 22.9 H Hematocrit 41.3 Hgb O2 Saturation 96.8 Carboxyhemoglobin 0.7 Methemoglobin 0.4 Total Hemoglobin 13.5 Sodium 133 L 137.0 Potassium 3.8 3.7 Glucose 205 H 177.0 H Ionized Calcium 1.2 FiO2 21.0 Director Of Automation ID amh Chloride 97 L Carbon Dioxide 23 Anion Gap 16.8 BUN 9 Creatinine 0.5 GFR Calculation 138.1 H Calcium 9.6 Total Bilirubin 0.3 AST 26 ALT 41 H Alkaline Phosphata se 90 C-React Prot High Sens 4.240 H Total Protein 6.8 Albumin 4.1 Globulin 2.7 Lipase 29 Influenza Type A A g POC Influenza B Ag Vitals: Last Vital Signs Temp 97.8 F 03/13/19 11:43 Pulse 106 H 03/13/19 11:43 Resp 22 H 03/13/19 11:43 BP 143/82 03/13/19 11:43 Pulse Ox 96 03/13/19 11:43 Discharge Plan Discharge Patient Disposition: Home, Self-Care Condition: Stable Prescriptions: New fluticasone propion-salmeterol 45-21 mcg/actuation HFA aerosol inhaler 2 inh INHALATION BID Qty: 8 RF: 0 prednisone 20 mg tablet 20 mg PO DAILY 4 Days Qty: 4 RF: 0 Continued hydrochlorothiazide 25 mg tablet 25 mg PO DAILY Qty: 30 RF: 0 albuterol sulfate 2.5 mg /3 mL (0.083 %) Solution For Nebulization 2.5 mg inhalation Q4H PRN (Reason: Shortness Of Breath) RF: 0 famotidine 20 mg Tablet 20 mg PO BID RF: 0 benzonatate 100 mg Capsule 100 mg PO Q8H RF: 0 Keflex 500 mg Capsule 500 mg PO Q6H RF: 0 Probiotic 2 cap PO DAILY RF: 0 biotin 1 cap PO DAILY RF: 0 Discontinued prednisone 50 mg tablet 50 mg PO DAILY Qty: 5 RF: 0 Discharge Orders: Discharge Order (Routine); Ordered 03/13/19 Ordered By: Bruce Borden Other Ambulatory Orders: Miscellaneous Procedure (Order) Timeframe: 4 Weeks Location: None Selected Ordered By: Bruce Borden Referrals: Ayanna Cruz MD [Primary Care Provider] - 4-7 days Aileen Olmedo MD [Physician] - 2 weeks (Asthma) Discharge Diet: Low Salt Discharge Activity: Increase activity as tolerated Activity Restrictions/Additional Instructions: Please monitor your blood pressures 3 times daily. Record values to bring to your appointment. If your blood pressure is persistently elevated, above 190 systolic, above 110 diastolic please seek medical attention without delay. 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
--- NOTE | 2019-03-13 14:39 | PC.CHAP ---
Pastoral Care Encounter/Spiritual Assessment Type of Contact [] Declined exploration manager visit [] Patient/Family/Request visit [] Outpatient visit [] Follow-up visit [] Physician referral [] Code/Alert [x] Routine visit [] Staff referral [] Actively dying [] Patient sleeping [x] Family support [] [] Out of room [] Palliative care [] [] Receiving care in room [] Pre-surgical visit [] Trauma [] Long length of stay [] ICU visit [] Other: Relational/Emotional Strength [x] Patient feels connected with others/family/visitors/staff [] Distress [] Loneliness/isolation [] Abandonment Spirituality of Patient [x] Person of Hue [x] Attends Evangelical of their Hue [x] Believes in Prayer [x] Reads Bible or Caodaism materials [] There are Spiritual issues to be addressed Engineer Third Assistant Interventions [x] Prayer [x] Active listening [x] Non-anxious presence [x] Spiritual/emotional support [] Crisis/trauma care [] Spiritual counseling [] Bereavement support [] Provided bereavement packet [] Provided Bible/devotional materials [] Provided toy/stuffed animal, coloring book to patient or family member [x] Completed spiritual assessment [] Provided Communion [] Anointing/[place]agoner [] Salvation [] Other: Impact on Illness or Injury [] Angry [] Fearful [] Anxious [] Often cries [] Exhaustion [x] Unable to work [] Unable to attend scientology [] Unable to walk/stand [] Unable to read [] Unable to drive [] Unable to eat/drink [] Unable to sleep [] Unable to be with family [x] Other: Patient in [facility] and is very active with other residents and activities. Summary Family members present. Patient expects to leave hospital tomorrow. Patient was very pleasant and talkative. Patient was a delight to be around. Time spent with patient 15 minutes
== END 2019-03-13 15:00 | disposition home or self-care (01) ==
LOC: ER 20:10 → MEDSURG 20:17
PROVIDERS: Admitting Provider Internal Medicine; Emergency Provider Family Medicine; PCP Family Medicine; Visit Provider Internal Medicine
DX: J45.51 Severe persistent asthma with (acute) exacerbation (principal); I10 Essential (primary) hypertension
CPT/HCPCS: 12345; 36415; 36600; 71045; 74177; 80048; 80051; 80053; 82810; 83690; 83986; 85025; 86141; 87804; 94640; 94664; 96360; 96361; 96374; 96375; 99221; 99281; 99285; G0378; J2920; J2930; J7030; J7611; Q9967

== ENCOUNTER → 2021-07-11 10:46 | Outpatient (BNVA) | payer BC, MEDICAID, SELFPAY | PROVIDERS: PCP Family Medicine; Visit Provider Internal Medicine Critical Care Medicine | DX: J45.40 Moderate persistent asthma, uncomplicated (principal); J30.9 Allergic rhinitis, unspecified; I10 Essential (primary) hypertension | CPT/HCPCS: 99213 ==

== ENCOUNTER → 2022-04-08 10:19 | Outpatient (BNVA) | payer BC, MEDICAID, SELFPAY | PROVIDERS: PCP Family Medicine; Visit Provider Registered Nurse Neonatal Intensive Care | DX: J02.9 Acute pharyngitis, unspecified (principal); H66.003 Acute suppurative otitis media without spontaneous rupture of ear drum, bilateral | CPT/HCPCS: 87880 ==

== ENCOUNTER 2023-05-24 18:24 | Emergency (ER) | payer BC, MEDICAID, SELFPAY ==
[2023-05-24] VITALS (9 sets, daily range): BP systolic 98–142; BP diastolic 67–97; PULSE 73–89; RESP 20–22; TEMP 36.6; O2SAT 97–100; BMI 46.7
--- NOTE | 2023-05-24 18:46 | USR_ITS ---
PROCEDURE INFORMATION: Exam: US Abdomen, Limited; Right Upper Quadrant Exam date and time: 05/24/2023 7:01 PM Age: 42 years old Clinical indication: Abdominal pain; Patient HX: Chronic intermittent ruq pain for many months, now acutely painful. TECHNIQUE: Imaging protocol: Real time ultrasound of the abdomen with image documentation. Limited exam focused on the right upper quadrant. COMPARISON: CT abdomen pelvis w con* [id number] 03/12/2019 6:52 PM FINDINGS: Liver: The liver is mildly enlarged measuring up to 16.1 cm in length with diffusely increased echogenicity which can be seen the setting of hepatic steatosis. Gallbladder: Multiple small stones and sludge in the gallbladder with gallbladder wall thickening and sonographic Bradley's sign consistent with acute cholecystitis. Biliary ducts: Common bile duct measures 5 mm in diameter. Pancreas: The pancreas is not visualized. The spleen is not well assessed. Right kidney: The right kidney measures up to 10.9 cm in length with no hydronephrosis or renal calculus. Inferior vena cava: Visualized aorta and IVC are unremarkable. US/US gall bladder [id number] IMPRESSION: Multiple small stones and sludge in the gallbladder with gallbladder wall thickening and sonographic Bradley's sign consistent with acute cholecystitis.
--- NOTE | 2023-05-24 18:48 | ED_ITS ---
Documented by User: KEKE Mary 05/24/23 20:48 HPI - Abdominal Pain 2 General: Chief Complaint: Abdominal Pain Stated Complaint: abdomen pain Time Seen by Provider: 05/24/23 18:33 Source: patient Mode of arrival: ambulatory Limitations: no limitations History of Present Illness: Patient is a 42-year-old female presents the emergency department complaining of right upper quadrant pain chronically but worsening over the past week. Patient notes that a week ago the pain that she chronically has in her right upper quadrant suddenly worsened due to some increased stress in her life. Since then it has steadily worsened and has become more constant, as today she notes she has been unable to do anything due to the severity of the pain. It is now radiating straight through to her back and right shoulder. She also notes that sometimes it radiates across the abdomen. She reports history of gallbladder problems but is unable to specify what this means and states that her primary care diagnosed her with this. The only thing she reports taking for her pain is Mylanta. She is noting some associated nausea, but has not been running fevers and has not had any episodes of vomiting. She reports history of IBS but denies any acute changes to her bowel habits. She does not relate the pain to any eating habits or specific foods. The pain was initially achy but is more stabbing in quality now. Patient denies any urinary symptoms, breathing difficulties, or any other symptoms at this time. MD elicited complaint: abdominal pain Pertinent past history: other ( Gallbladder problems ) Onset (ago): week(s) (Chronic but worse over the past week) Pain Consistency: constant Location: RUQ Severity: severe Pain scale (0-10): 10 Quality: stabbing Radiation: back Exacerbating factors: movement and other (Palpation) Relieving factors: nothing Associated Symptoms: Reports nausea; Denies change in bowel habits, chills, diarrhea, dysuria, fever(s) and vomiting Related Data: Patient : No Review of Systems 2 General: Reports: 10 or more systems reviewed and unremarkable except in HPI and below Const: Denies: fever(s), chills, change in appetite, change in weight or diaphoresis ENMT: Denies: throat pain or hoarseness Card: Denies: chest pain, palpitations or lightheadedness Resp: Denies: dyspnea, productive cough or wheezing GI: Reports: abdominal pain and nausea; Denies: vomiting, diarrhea or change in bowel habits : Denies: flank pain, difficulty voiding, dysuria, urinary frequency or urinary urgency Musc: Denies: neck pain or back pain Skin/Breast: Denies: rash or new lesions Neuro: Denies: headache(s) or dizziness PFSH ED 2 PFSH: Medical History (Updated 05/24/23 @ 20:43 by KEKE Mary) Hypertension Acute asthmatic bronchitis Asthma Surgical History Hx of section Family History Father Lung disease Asthma, COPD Heart disease Diabetes Hypertension Brother Lung disease All 4 brothers have asthma Diabetes Grandmother Heart disease Grandfather Heart disease Mother Diabetes Hypertension Social History Smoking and tobacco/nicotine status: never used tobacco/nicotine Alcohol intake: never Substance/Drug Use: never Lives independently: Yes Household members: spouse Marital status: Current occupational status: unemployed Do you think of yourself as: Straight/Heterosexual Current gender identity: Female Physical Exam 2 Const: COMMON NORMALS: patient oriented x3, no limitations, alert and well nourished GENERAL APPEARANCE: cooperative, in distress (Clutching right upper quadrant) and anxious NUTRITIONAL APPEARANCE: obese centrally obese O RIENTATION/CONSCIOUSNESS: Yes awake HENMT: COMMON NORMALS: normocephalic, atraumatic, hearing grossly normal bilaterally, external ears normal, Normal external nose present, Normal nasal mucous membranes and turbinates present and moist oral mucous membranes HEAD & SCALP: normocephalic and atraumatic NOSE: Normal external nose present and Normal nasal mucous membranes and turbinates present EXTERNAL EAR: Yes external ears normal Eye: COMMON NORMALS: Equal, round and reactive pupils present, EOMs intact bilaterally, conjunctivae normal and normal visual mendoza by confrontation C ONJUNCTIVA: Yes conjunctivae normal PUPIL: Yes Equal, round and reactive pupils present Neck/C-Spine: COMMON NORMALS: full ROM, supple, no meningeal signs and no JVD Resp: COMMON NORMALS: normal respiratory effort, No retractions, No use of accessory muscles and clear to auscultation bilaterally AUSCULTATION: clear to auscultation bilaterally, no crackles, no rales, no rhonchi and no wheezes Cardio: COMMON NORMALS: no JVD, regular rate, regular rhythm, S1 normal heart sound present, S2 normal heart sound present, No gallops present (Cardio), No clicks present (Cardio), No murmurs present (Cardio), No rub (Cardio) and Peripheral pulses 2+ throughout RATE: regular rate RHYTHM: regular rhythm HEART SOUNDS: S1 normal heart sound present and S2 normal heart sound present PERIPHERAL PULSES: Peripheral pulses 2+ throughout GI: COMMON NORMALS: Normal to inspection, nondistended, normoactive bowel sounds present, Soft to palpation, No hepatosplenomegaly present and no masses INSPECTION: Yes normal to inspection and Yes central obesity AUSCULTATION: Y es normoactive bowel sounds PALPATION: Yes Soft to palpation, Yes Tenderness to palpation present (GI) Details: RUQ, Yes Guarding due to palpation present (GI) (Voluntary) in the RUQ, No Rigid due to palpation, Yes No hepatosplenomegaly present and Yes Other GI palpation findings present (Positive Bradley sign) RECTAL EXAM: deferred : COMMON NORMALS: Yes no CVA tenderness BLADDER/KIDNEY EXAM: Yes no CVA tenderness Back/Pelvis: COMMON NORMALS: no CVA tenderness Extremity: COMMON NORMALS: normal to inspection and full ROM Neuro: COMMON NORMALS: patient oriented x3, moves all extremities, no focal motor deficits and no sensory deficits noted SENSORIUM/ORIENTATION: Yes alert MENINGEAL SIGNS: Yes no meningeal signs Psych: COMMON NORMALS: mental status grossly normal, cooperative and speech normal SPEECH: Yes normal speech Skin: COMMON NORMALS: no rashes or lesions noted GENERAL SKIN EXAM: no rashes or lesions noted Course 2 Vital Signs: Vital signs: Vital Signs Temperature 97.9 F 05/24/23 18:26 Pulse Rate 82 05/24/23 22:02 Respiratory Rate 20 H 05/24/23 21:01 Blood Pressure 107/79 05/24/23 21:30 Pulse Oximetry 99 05/24/23 22:02 Oxygen Delivery Me thod Room Air 05/24/23 21:30 MDM - Abdominal Pain Medical Decision Making Patient seen and evaluated in the emergency department today for right upper quadrant pain. Reports history of gallbladder problems. On arrival patient severely anxious and clutching right upper quadrant due to her pain. Patient had right upper quadrant TTP with positive Bradley sign on examination. Vitals otherwise unremarkable. Started her on a liter of fluids as well as morphine and Zofran. CBC, CMP, lipase, and UA all unremarkable. Gallbladder ultrasound showed stones and sludge in the gallbladder with wall thickening and a sonographic Bradley sign, which radiologist called acute cholecystitis. I spoke with on-call surgeon, Dr. Marie, and informed him of patient's workup. He states the patient can be started on antibiotics with appropriate pain control at this time. Will start the patient on Augmentin and send her home with prescriptions for hydrocodone and Zofran. Return precautions given. Patient agrees with plan. Lab Data I reviewed the patient's lab results. 05/24/23 18:54 05/24/23 18:54 Labs/Radiology: Radiology Impressions Gallbladder Ultrasound 05/24/23 18:46 IMPRESSION: Multiple small stones and sludge in the gallbladder with gallbladder wall thickening and sonographic Bradley's sign consistent with acute cholecystitis. Laboratory Results WBC 8.85 10^3/uL (3.29-11.43) 05/24/23 18:54 RBC 5.38 10^6/uL (3.85-5.65) 05/24/23 18:54 Hgb 14.10 g/dL (11.27-16.99) 05/24/23 18:54 Hct 44.0 % (36-47) 05/24/23 18:54 MCV 81.8 fl (85-98) L 05/24/23 18:54 MCH 26.2 pg (27-33) L 05/24/23 18:54 MCHC 32.0 g/dL (30-55) 05/24/23 18:54 RDW 14.2 % (12.1-15.1) 05/24/23 18:54 Plt Count 285 10^3/cmm (157-399) 05/24/23 18:54 MPV 9.9 fL (7.4-10.4) 05/24/23 18:54 Neut % (Auto) 67.8 % 05/24/23 18:54 Lymph % (Auto) 24.1 % 05/24/23 18:54 [place] % (Auto) 6.8 % 05/24/23 18:54 Eos % (Auto) 1.0 % 05/24/23 18:54 Baso % (Auto) 0.1 % 05/24/23 18:54 Neut # (Auto) 6.00 10^3/uL (1.8-7.7) 05/24/23 18:54 Lymph # (Auto) 2.1 10^3/uL (0.8-4.8) 05/24/23 18:54 [place] # (Auto) 0.6 10^3/uL (0.2-0.9) 05/24/23 18:54 Eos # (Auto) 0.1 10^3/uL (0.0-0.8) 05/24/23 18:54 Baso # (Auto) 0.0 10^3/uL (0.0-0.1) 05/24/23 18:54 Nucleated RBC % (auto) 0 % 05/24/23 18:54 Nucleated RBCs # 0.0 /100WBC 05/24/23 18:54 Sodium 142 mmol/L (136-145) 05/24/23 18:54 Potassium 4.1 mmol/L (3.5-5.1) 05/24/23 18:54 Chloride 103 mmol/L (98-107) 05/24/23 18:54 Carbon Dioxide 27 mmol/L (22-29) 05/24/23 18:54 Anion Gap 16.1 (5-19) 05/24/23 18:54 BUN 15 mg/dL (6-20) 05/24/23 18:54 Creatinine 0.6 mg/dL (0.5-0.9) 05/24/23 18:54 GFR Calculation 109.6 mL/min (90-130) 05/24/23 18:54 Glucose 87 mg/dL (65-115) 05/24/23 18:54 Calculated Osmolality 294 mOsm/kg (285-295) 05/24/23 18:54 Lactic Acid 0.9 mmol/L (0.5-2.2) 05/24/23 18:54 Calcium 9.6 mg/dL (8.5-10.5) 05/24/23 18:54 Total Bilirubin 0.4 mg/dL (0.15-1.2) 05/24/23 18:54 AST 14 U/L (0-32) 05/24/23 18:54 ALT 18 U/L (0-33) 05/24/23 18:54 Alkaline Phosphatase 101 U/L (35-105) 05/24/23 18:54 Total Protein 7.5 g/dL (6.6-8.7) 05/24/23 18:54 Albumin 4.3 g/dL (3.5-5.2) 05/24/23 18:54 Globulin 3.2 g/dL (1.3-4.6) 05/24/23 18:54 Lipase 27 U/L (13-60) 05/24/23 18:54 Urine Color Yellow (Yellow) 05/24/23 20:33 Urine Appearance Clear (CLEAR) 05/24/23 20:33 Urine pH 7 (5-7) 05/24/23 20:33 Ur Specific [place] 1.015 (1.005-1.030) 05/24/23 20:33 Urine Protein Neg (Negative) 05/24/23 20:33 Urine Glucose (UA) Norm (Normal) 05/24/23 20:33 Urine Ketones Negative (Negative) 05/24/23 20:33 Urine Blood Neg (Negative) 05/24/23 20:33 Urine Nitrate Negative (Negative) 05/24/23 20:33 Urine Bilirubin Neg (Negative) 05/24/23 20:33 Urine Urobilinogen Neg mg/dL (Negative) 05/24/23 20:33 Ur Leukocyte Esterase Negative (Negative) 05/24/23 20:33 All radiology interpretation(s) finalized by discharge Discharge Plan Discharge Patient Disposition: Home Clinical Impression: Acute cholecystitis Condition: Stable Prescriptions: New hydrocodone-acetaminophen 5-325 mg tablet 1 tab PO Q6H PRN (Reason: pain) Qty: 14 0RF ondansetron 4 mg tablet,disintegrating 4 mg PO Q6H PRN (Reason: nausea and vomiting) Qty: 14 0RF Augmentin 500-125 mg tablet 1 tab PO BID Qty: 14 0RF No Action bupropion HCl PO omeprazole 40 mg capsule,delayed release(DR/EC) 40 mg PO DAILY lisinopril 10 mg tablet 10 mg PO DAILY estradiol 0.5 mg tablet 0.5 mg PO DAILY Rx Instructions: off 5 days; repeat cycle fluticasone propionate [Flonase Allergy Relief] 50 mcg/actuation spray,suspension 2 spray INTRANASAL DAILY PRN (Reason: allergy symptoms) Qty: 18.2 6RF Rx Instructions: administer into each nostril azelastine 137 mcg (0.1 %) aerosol,spray 1 spray INTRANASAL BID Qty: 30 6RF Rx Instructions: administer into each nostril budesonide-formoterol [Symbicort] 160-4.5 mcg/actuation HFA aerosol inhaler 1 puff inhalation BID Qty: 10.2 6RF albuterol sulfate [Ventolin HFA] 90 mcg/actuation HFA aerosol inhaler See Rx Instructions .ROUTE .COMPLEX Qty: 18 6RF Dose Instruction: INHALE 2 PUFFS BY MOUTH EVERY 6 HOURS FOR RUNNY NOSE FOR SHORTNESS OF BREATH AND WHEEZING Rx Instructions: INHALE 2 PUFFS BY MOUTH EVERY 6 HOURS FOR RUNNY NOSE FOR SHORTNESS OF BREATH AND WHEEZING amoxicillin 875 mg tablet 875 mg PO BID 10 Days Qty: 20 0RF montelukast 10 mg tablet 10 mg PO DAILY Qty: 30 6RF biotin 1 cap PO DAILY Discharge Orders: Discharge ED (Routine); Ordered 05/24/23 Ordered By: Bahman Truong Referrals: Rachana Montelongo MD [Primary Care Provider] - Discharge Diet: Usual diet Discharge Activity: Increase activity as tolerated Patient Instructions: Cholecystitis (ED) Activity Restrictions/Additional Instructions: Take Augmentin as prescribed. Zofran for nausea. Hydrocodone for pain. Plenty of fluids. Follow-up with your primary care provider. Return with any new or concerning symptoms. Coding Level of Care Code ED Manager Corporate for [facility] Documented by User: Nato Grimaldo DO 05/25/23 05:32 HPI - Abdominal Pain 2 General: Chief Complaint: Abdominal Pain Stated Complaint: abdomen pain Time Seen by Provider: 05/24/23 18:33 PFSH ED 2 PFSH: Medical History (Updated 05/24/23 @ 20:43 by KEKE Mary) Hypertension Acute asthmatic bronchitis Asthma Surgical History Hx of section Family History Father Lung disease Asthma, COPD Heart disease Diabetes Hypertension Brother Lung disease All 4 brothers have asthma Diabetes Grandmother Heart disease Grandfather Heart disease Mother Diabetes Hypertension Social History Smoking and tobacco/nicotine status: never used tobacco/nicotine Alcohol intake: never Substance/Drug Use: never Lives independently: Yes Household members: spouse Marital status: Current occupational status: unemployed Do you think of yourself as: Straight/Heterosexual Current gender identity: Female Course 2 Vital Signs: Vital signs: Vital Signs Temperature 97.9 F 05/24/23 18:26 Pulse Rate 82 05/24/23 22:02 Respiratory Rate 20 H 05/24/23 21:01 Blood Pressure 107/79 05/24/23 21:30 Pulse Oximetry 99 05/24/23 22:02 Oxygen Delivery Me thod Room Air 05/24/23 21:30 MDM - Abdominal Pain Medical Decision Making Patient seen and evaluated in the emergency department today for right upper quadrant pain. Reports history of gallbladder problems. On arrival patient severely anxious and clutching right upper quadrant due to her pain. Patient had right upper quadrant TTP with positive Bradley sign on examination. Vitals otherwise unremarkable. Started her on a liter of fluids as well as morphine and Zofran. CBC, CMP, lipase, and UA all unremarkable. Gallbladder ultrasound showed stones and sludge in the gallbladder with wall thickening and a sonographic Bradley sign, which radiologist called acute cholecystitis. I spoke with on-call surgeon, Dr. Marie, and informed him of patient's workup. He states the patient can be started on antibiotics with appropriate pain control at this time. Will start the patient on Augmentin and send her home with prescriptions for hydrocodone and Zofran. Return precautions given. Patient agrees with plan. Chart reviewed. Lab Data 05/24/23 18:54 05/24/23 18:54 Labs/Radiology: Radiology Impressions Gallbladder Ultrasound 05/24/23 18:46 IMPRESSION: Multiple small stones and sludge in the gallbladder with gallbladder wall thickening and sonographic Bradley's sign consistent with acute cholecystitis. Laboratory Results WBC 8.85 10^3/uL (3.29-11.43) 05/24/23 18:54 RBC 5.38 10^6/uL (3.85-5.65) 05/24/23 18:54 Hgb 14.10 g/dL (11.27-16.99) 05/24/23 18:54 Hct 44.0 % (36-47) 05/24/23 18:54 MCV 81.8 fl (85-98) L 05/24/23 18:54 MCH 26.2 pg (27-33) L 05/24/23 18:54 MCHC 32.0 g/dL (30-55) 05/24/23 18:54 RDW 14.2 % (12.1-15.1) 05/24/23 18:54 Plt Count 285 10^3/cmm (157-399) 05/24/23 18:54 MPV 9.9 fL (7.4-10.4) 05/24/23 18:54 Neut % (Auto) 67.8 % 05/24/23 18:54 Lymph % (Auto) 24.1 % 05/24/23 18:54 [place] % (Auto) 6.8 % 05/24/23 18:54 Eos % (Auto) 1.0 % 05/24/23 18:54 Baso % (Auto) 0.1 % 05/24/23 18:54 Neut # (Auto) 6.00 10^3/uL (1.8-7.7) 05/24/23 18:54 Lymph # (Auto) 2.1 10^3/uL (0.8-4.8) 05/24/23 18:54 [place] # (Auto) 0.6 10^3/uL (0.2-0.9) 05/24/23 18:54 Eos # (Auto) 0.1 10^3/uL (0.0-0.8) 05/24/23 18:54 Baso # (Auto) 0.0 10^3/uL (0.0-0.1) 05/24/23 18:54 Nucleated RBC % (auto) 0 % 05/24/23 18:54 Nucleated RBCs # 0.0 /100WBC 05/24/23 18:54 Sodium 142 mmol/L (136-145) 05/24/23 18:54 Potassium 4.1 mmol/L (3.5-5.1) 05/24/23 18:54 Chloride 103 mmol/L (98-107) 05/24/23 18:54 Carbon Dioxide 27 mmol/L (22-29) 05/24/23 18:54 Anion Gap 16.1 (5-19) 05/24/23 18:54 BUN 15 mg/dL (6-20) 05/24/23 18:54 Creatinine 0.6 mg/dL (0.5-0.9) 05/24/23 18:54 GFR Calculation 109.6 mL/min (90-130) 05/24/23 18:54 Glucose 87 mg/dL (65-115) 05/24/23 18:54 Calculated Osmolality 294 mOsm/kg (285-295) 05/24/23 18:54 Lactic Acid 0.9 mmol/L (0.5-2.2) 05/24/23 18:54 Calcium 9.6 mg/dL (8.5-10.5) 05/24/23 18:54 Total Bilirubin 0.4 mg/dL (0.15-1.2) 05/24/23 18:54 AST 14 U/L (0-32) 05/24/23 18:54 ALT 18 U/L (0-33) 05/24/23 18:54 Alkaline Phosphatase 101 U/L (35-105) 05/24/23 18:54 Total Protein 7.5 g/dL (6.6-8.7) 05/24/23 18:54 Albumin 4.3 g/dL (3.5-5.2) 05/24/23 18:54 Globulin 3.2 g/dL (1.3-4.6) 05/24/23 18:54 Lipase 27 U/L (13-60) 05/24/23 18:54 Urine Color Yellow (Yellow) 05/24/23 20:33 Urine Appearance Clear (CLEAR) 05/24/23 20:33 Urine pH 7 (5-7) 05/24/23 20:33 Ur Specific [place] 1.015 (1.005-1.030) 05/24/23 20:33 Urine Protein Neg (Negative) 05/24/23 20:33 Urine Glucose (UA) Norm (Normal) 05/24/23 20:33 Urine Ketones Negative (Negative) 05/24/23 20:33 Urine Blood Neg (Negative) 05/24/23 20:33 Urine Nitrate Negative (Negative) 05/24/23 20:33 Urine Bilirubin Neg (Negative) 05/24/23 20:33 Urine Urobilinogen Neg mg/dL (Negative) 05/24/23 20:33 Ur Leukocyte Esterase Negative (Negative) 05/24/23 20:33 Discharge Plan Discharge Patient Disposition: Home Clinical Impression: Acute cholecystitis Condition: Stable Prescriptions: New hydrocodone-acetaminophen 5-325 mg tablet 1 tab PO Q6H PRN (Reason: pain) Qty: 14 0RF ondansetron 4 mg tablet,disintegrating 4 mg PO Q6H PRN (Reason: nausea and vomiting) Qty: 14 0RF Augmentin 500-125 mg tablet 1 tab PO BID Qty: 14 0RF No Action bupropion HCl PO omeprazole 40 mg capsule,delayed release(DR/EC) 40 mg PO DAILY lisinopril 10 mg tablet 10 mg PO DAILY estradiol 0.5 mg tablet 0.5 mg PO DAILY Rx Instructions: off 5 days; repeat cycle fluticasone propionate [Flonase Allergy Relief] 50 mcg/actuation spray,suspension 2 spray INTRANASAL DAILY PRN (Reason: allergy symptoms) Qty: 18.2 6RF Rx Instructions: administer into each nostril azelastine 137 mcg (0.1 %) aerosol,spray 1 spray INTRANASAL BID Qty: 30 6RF Rx Instructions: administer into each nostril budesonide-formoterol [Symbicort] 160-4.5 mcg/actuation HFA aerosol inhaler 1 puff inhalation BID Qty: 10.2 6RF albuterol sulfate [Ventolin HFA] 90 mcg/actuation HFA aerosol inhaler See Rx Instructions .ROUTE .COMPLEX Qty: 18 6RF Dose Instruction: INHALE 2 PUFFS BY MOUTH EVERY 6 HOURS FOR RUNNY NOSE FOR SHORTNESS OF BREATH AND WHEEZING Rx Instructions: INHALE 2 PUFFS BY MOUTH EVERY 6 HOURS FOR RUNNY NOSE FOR SHORTNESS OF BREATH AND WHEEZING amoxicillin 875 mg tablet 875 mg PO BID 10 Days Qty: 20 0RF montelukast 10 mg tablet 10 mg PO DAILY Qty: 30 6RF biotin 1 cap PO DAILY Discharge Orders: Discharge ED (Routine); Ordered 05/24/23 Ordered By: Bahman Truong Referrals: Rachana Montelongo MD [Primary Care Provider] - Discharge Diet: Usual diet Discharge Activity: Increase activity as tolerated Patient Instructions: Cholecystitis (ED) Activity Restrictions/Additional Instructions: Take Augmentin as prescribed. Zofran for nausea. Hydrocodone for pain. Plenty of fluids. Follow-up with your primary care provider. Return with any new or concerning symptoms. Coding Level of Care Code ED Manager Corporate for Zulma Merida
[2023-05-24] MEDS: ondansetron 2 mg/ML SDV 2 mL 4 MG IVP ×2 (19:13→21:01)
[2023-05-24] MEDS: morphine 4 mg/mL SDV 1 mL IVP ×2 (19:14→21:01)
[2023-05-24] MEDS: sodium chloride 0.9% 1,000 ML 999 ML IV ×2 (19:15→20:35)
[2023-05-24 19:30] LABS: Basophils % 0.1 %; Eosinophils # 0.1 10^3/uL (0.0-0.8); Lymphocytes # 2.1 10^3/uL (0.8-4.8); Lymphocytes % 24.1 %; Mean Corpuscular Hemoglobin 26.2 pg (27-33); Mean Corpuscular Volume 81.8 fl (85-98); Mean Platelet Volume 9.9 fL (7.4-10.4); Monocytes # 0.6 10^3/uL (0.2-0.9); Monocytes % 6.8 %; Neutrophils % 67.8 %; Nucleated Red Blood Cells % 0 %; Platelet Count 285 10^3/cmm (157-399); Red Blood Count 5.38 10^6/uL (3.85-5.65); Red Cell Distribution Width 14.2 % (12.1-15.1); White Blood Count 8.85 10^3/uL (3.29-11.43)
[2023-05-24 19:46] LABS: Alanine Aminotransferase 18 U/L (0-33); Albumin Level 4.3 g/dL (3.5-5.2); Alkaline Phosphatase 101 U/L (35-105); Anion Gap 16.1 (5-19); Aspartate Amino Transferase 14 U/L (0-32); Blood Urea Nitrogen 15 mg/dL (6-20); Calcium 9.6 mg/dL (8.5-10.5); Carbon Dioxide 27 mmol/L (22-29); Chloride 103 mmol/L (98-107); Creatinine Clr Calc Pharmacy 158.4451; Globulin 3.2 g/dL (1.3-4.6); Glomerular Filtration Rate 109.6 mL/min (90-130); Glucose 87 mg/dL (65-115); Lipase 27 U/L (13-60); Osmolality Calculated 294 mOsm/kg (285-295); Potassium 4.1 mmol/L (3.5-5.1); Sodium 142 mmol/L (136-145); Total Bilirubin 0.4 mg/dL (0.15-1.2); Total Protein 7.5 g/dL (6.6-8.7)
[2023-05-24 20:44] LABS: Add Urine Microscopic? NO; Charge for UA Resulting for Rev
[2023-05-24 21:04] LABS: Bilirubin Urine Neg (Negative); Blood Urine Neg (Negative); Glucose Urine UA Norm (Normal); Ketones Urine Negative (Negative); Leukocyte Esterase Urine Negative (Negative); Nitrate Urine Negative (Negative); Protein Urine Neg (Negative); Specific Gravity, Urine 1.015 (1.005-1.030); Urine Appearance Clear (CLEAR); Urine Color Yellow (Yellow); Urobilinogen Urine Neg (Negative); pH Urine 7 (5-7)
[2023-05-24 21:12] LABS: Lactic Sepsis W/Reflex 0.9 mmol/L (0.5-2.2)
--- NOTE | 2023-05-25 09:35 | DCPLANNER ---
Message sent to Gen surg for follow up on choleithiasis
== END 2023-05-24 22:06 | disposition home or self-care (01) ==
PROVIDERS: Emergency Provider Physician Assistant; PCP Family Medicine
DX: K81.0 Acute cholecystitis (principal); I10 Essential (primary) hypertension
CPT/HCPCS: 36415; 76705; 80053; 81003; 83605; 83690; 85025; 96361; 96374; 96375; 96376; 99284; J2270; J2405; J7030